=== PATIENT | male | born 1965 | race Hispanic/Latino ===

== ENCOUNTER 2018-04-20 13:44 | Inpatient (IN) | payer MEDICARE, OTHER ==
[2018-04-20] MEDS ORDERED: Acetaminophen 500 MG TAB ONE (14:26)
[2018-04-20 14:43] LABS: Bilirubin Negative (Negative); Blood, Urine Large (Negative); Clarity CLOUDY (Clear); Glucose, Urine (Dipstick) Negative (Negative); Leukocyte Large (Negative); Nitrite Negative (Negative); Protein, Urine (Dipstick) 100 mg/dL (Neg-Trace); Specific Gravity, Urine 1.013 (1.002-1.036)
[2018-04-20 14:50] LABS: Bacteria/HPF 1+ HPF (None Seen); Hyaline Casts/LPF 0-3 HYALINE CAST LPF (0-3 Hyaline); Pathc Cast-AUWi Flag 0.57 (0-2.49); Squamous Epithelial None Seen HPF (0-3)
[2018-04-20 14:54] LABS: Yeast-AUWi Flag 401.7 (0-25.0)
[2018-04-20 14:57] LABS: Mean Corpuscular HGB CONC 33.8 g/dL (32.0-36.0); Mean Corpuscular Hemoglobin 30.9 pg (27.0-31.0); Mean Corpuscular Volume 91.5 fL (78.0-98.0); Mean Platelet Volume 8.1 fL (7.4-10.4); Platelet Count 214 thou/uL (130-400); Red Blood Cell (RBC) Count 5.19 mill/uL (4.70-6.10); White Blood Cell (WBC) Count 16.3 thou/uL (4.8-10.8)
[2018-04-20 15:06] LABS: RBC/HPF GREATER THAN 50-TNTC HPF (0-3); Yeast-All Forms None Seen HPF (None Seen)
[2018-04-20 15:14] LABS: ALT (SGPT) 12 U/L (8-55); AST (SGOT) 15 U/L (5-34); Albumin 4.8 g/dL (3.5-5.0); Alkaline Phosphatase 80 U/L (40-150); Anion Gap 14 mmol/L (10-20); BUN (Urea Nitrogen) 16 mg/dL (8.4-25.7); Bilirubin, Total 1.2 mg/dL (0.2-1.2); Calc. Creatinine Clearance 0 mL/min (70-130); Calcium 9.9 mg/dL (7.8-10.44); Carbon Dioxide 23 mmol/L (22-29); Chloride 104 mmol/L (98-107); Estimated GFR-MDRD 80; Globulin 3.1 g/dL (2.4-3.5); Glucose 135 mg/dL (70-105); Potassium 3.8 mmol/L (3.5-5.1); Protein, Total 7.9 g/dL (6.0-8.3); Sodium 137 mmol/L (136-145)
[2018-04-20 15:15] LABS: Band 6 % (5-11); Lymphocytes 4 % (21-51); MDiff Complete? YES; Monocytes 4 % (0-10); Neutrophil 84 % (42-75); PLT Morphology Comment Appears Adequate; RBC Morphology Normal; Reactive Lymphocytes 1 % (0-10)
[2018-04-20] MEDS ORDERED: Sodium Chloride 0.9% 100 ML ONE (15:37)
[2018-04-20] MEDS ORDERED: cefTRIAXone\\ROCEPHIN 1 GM VIAL ONE (15:37)
[2018-04-20] MEDS ORDERED: Bisacodyl 5 MG TAB PO PRN (17:49)
[2018-04-20] MEDS ORDERED: Acetaminophen 650 MG Suppository PR PRN (17:49)
[2018-04-20] MEDS ORDERED: Ondansetron ODT 4 MG TAB SL PRN (19:06)
[2018-04-20] MEDS ORDERED: Ondansetron HCl/PF 4 MG/2 ML Vial IVP PRN (19:06)
--- NOTE | 2018-04-20 19:08 | HP ---
PRIMARY CARE PROVIDER: Doug Ugalde. CHIEF COMPLAINT: Hematuria. HISTORY OF PRESENT ILLNESS: Mr. Schwartz is a pleasant 53-year-old gentleman, who was seen at [facility] on 04/20/2018. He speaks Qatari, also speaks some Slovenian. The family member by the bedside, assisted with transla tion. He has no medical problems. He is followed by [facility]. He is also followed by [facility] for s chizophrenia. He takes all his medications regularly and has not had any other medical problems. night, he developed hematuria. He describes bright red blood in the urine. He reportedly complai brennen of abdominal pain earlier, but when questioned about it, he denied having any abdominal pain. He is unsure if he had any fevers or chills. He denies any nausea or vomiting. He denies any diarrhea . He came to the emergency room mainly because of ongoing hematuria. In the emergency room, he was found to be febrile and tachycardic and also found to have a urinary tr act infection. He was therefore referred for admission. REVIEW OF SYSTEMS: All other systems reviewed and found to be negative. PAST MEDICAL HISTORY: None. PAST SURGICAL HISTORY: None. PSYCHIATRIC HISTORY: Schizophrenia. SOCIAL HISTORY: The patient denies tobacco use, alcohol use or recreational drug use. FAMILY HISTORY: Significant for myocardial infarction in his father. ALLERGIES: No known drug allergies. CURRENT MEDICATIONS: Benztropine 2 mg 2 times a day, Claritin 10 mg daily, aspirin 81 mg daily, traz odone 200 mg at bedtime, clonazepam 0.5 mg at bedtime. PHYSICAL EXAMINATION: GENERAL: Mr. Schwartz is awake and alert, not in acute distress. VITAL SIGNS: Blood pressure is 118/76, pulse 117, oxygen saturation 97% on room air. He is currentl y afebrile. T-max in the emergency room was 100.3 degrees Fahrenheit. EYES: No scleral icterus. No conjunctival pallor. ENT: Dry mucosal membranes, no oropharyngeal erythema or exudates. NECK: Supple, nontender, trachea is midline. RESPIRATORY: Accessory muscles of breathing are not active. Chest wall movements are symmetric bila terally. LUNGS: Clear to auscultation without wheeze, rhonchi or crepitations. CARDIOVASCULAR: S1 and S2 are heard, tachycardic and regular. Peripheral pulses palpable. No carot id bruit, no pericardial rub. ABDOMEN: Soft, nontender, bowel sounds heard, no hepatomegaly, no splenomegaly, no costovertebral an gle tenderness. NEUROLOGIC: Cranial nerves II-XII intact. Deep tendon reflexes are 2+. SKIN: No rashes or subcutaneous nodules. LYMPHATIC: No cervical lymphadenopathy. PSYCHIATRIC: Normal mood, normal affect, patient is oriented to person and place, not to time. LABORATORY DATA: Mr. Schwartz's labs and investigations were reviewed. He has leukocytosis with 16,30 0 white cells, of which 84% are neutrophils, normal hemoglobin, normal platelet count, unremarkable c omprehensive metabolic profile, normal lactic acid and urinalysis that is positive for protein, keton es, blood, leukocyte esterase and greater than 50 WBCs. ASSESSMENT AND PLAN: Mr. Schwartz is a pleasant 53-year-old gentleman who was seen at [facility] on 04/20/2018. His problem list includes: 1. Sepsis: Mr. Schwartz is presenting with sepsis, most likely secondary to urinary tract infection. He will be admitted to the hospital for further management including intravenous fluids and intraven ous antibiotics. We will treat him with intravenous ceftriaxone and follow urine cultures. 2. Urinary tract infection. We will treat him with intravenous ceftriaxone, follow urine cultures a nd adjust antibiotics as needed. 3. Dehydration: The patient is clinically dehydrated. Provide intravenous hydration and reexamined . 4. Schizophrenia: Continue home medications. Many thanks for allowing me to participate in your patient's care. Please feel free to contact me wi th any questions or concerns. LEVEL OF RISK: High. LEVEL OF COMPLEXITY: High.
[2018-04-20 19:41] VITALS: BMI 22.4
[2018-04-20] MEDS: Sodium Chloride 0.9% 1,000 ML IV SCH (20:01)
[2018-04-20] MEDS: Acetaminophen 325 MG TAB PO PRN (21:23)
[2018-04-21] MEDS: Sodium Chloride 0.9% 1,000 ML IV SCH (04:18)
[2018-04-21 04:43] LABS: #Eosinphils 0.1 thou/uL (0.0-0.7); #Lymphocytes 1.5 thou/uL (1.20-3.40); #Monocytes 0.9 thou/uL (0.11-0.59); #Neutrophils 10.9 thou/uL (1.40-6.50); %Basophils 0.2 % (0.0-1.0); %Eosinophils 0.5 % (0.0-10.0); %Neutrophils 81.3 % (42.0-75.0); Hemoglobin 13.9 g/dL (14.0-18.0); Mean Corpuscular HGB CONC 34.1 g/dL (32.0-36.0); Mean Corpuscular Hemoglobin 31.4 pg (27.0-31.0); Mean Platelet Volume 7.6 fL (7.4-10.4); Platelet Count 176 thou/uL (130-400); RBC Distribution Width 12.1 % (11.5-14.5); Red Blood Cell (RBC) Count 4.42 mill/uL (4.70-6.10); White Blood Cell (WBC) Count 13.4 thou/uL (4.8-10.8)
[2018-04-21 05:04] LABS: Anion Gap 9 mmol/L (10-20); BUN (Urea Nitrogen) 11 mg/dL (8.4-25.7); Calc. Creatinine Clearance 115 mL/min (70-130); Calcium 8.6 mg/dL (7.8-10.44); Carbon Dioxide 25 mmol/L (22-29); Chloride 107 mmol/L (98-107); Estimated GFR-MDRD Greater than 90; Glucose 117 mg/dL (70-105); Potassium 3.7 mmol/L (3.5-5.1); Sodium 137 mmol/L (136-145)
[2018-04-21] MEDS: Enoxaparin Sodium 40 MG/0.4 ML SYRINGE SC SCH (07:57)
[2018-04-21] MEDS: Acetaminophen 325 MG TAB PO PRN ×2 (08:04→17:15)
[2018-04-21] MEDS ORDERED: Loratadine 10 MG TAB PO PRN (09:00)
[2018-04-21] MEDS ORDERED: Aspirin 81 mg Enteric Coated Tablet PO SCH (10:00)
[2018-04-21] MEDS ORDERED: Benztropine 1 MG TAB PO SCH (10:00)
[2018-04-21] MEDS ORDERED: Loratadine 10 MG TAB PO SCH (10:00)
--- NOTE | 2018-04-21 13:33 | PDOC.PN ---
- Subjective Encounter Start Date: 04/21/18 Encounter Start Time: 08:00 Pt seen for followup re: sepsis. Denies chest pain, shortness of breath, fevers or chills. - Objective MAR Reviewed: Yes Vital Signs & Weight: Vital Signs (12 hours) Temp Pulse Resp BP BP Pulse Ox 04/21/18 08:00 98.8 F 100 18 108/71 97 04/21/18 04:00 97.9 F 92 18 107/70 95 Weight Weight 164 lb 14.492 oz I&O: 04/20/18 04/21/18 04/22/18 06:59 06:59 06:59 Intake Total 1420 Output Total 950 Balance 470 Result Diagrams: 04/21/18 04:27 04/21/18 04:27 Additional Labs: labs reviewed by me Phys Exam - Physical Examination Constitutional: NAD HEENT: moist MMs, sclera anicteric, oral pharynx no lesions, 2+ tonsils Neck: no nodes, no JVD, supple, full ROM Respiratory: no wheezing, no rales, no rhonchi, clear to auscultation bilateral Cardiovascular: RRR, no rub S1, S2 Gastrointestinal: soft, non-tender, no distention, positive bowel sounds Neurological: moves all 4 limbs Psychiatric: normal affect Deviation from normal: Oriented to person and place, not to time Dx/Plan (1) Sepsis Code(s): A41.9 - SEPSIS, UNSPECIFIED ORGANISM Status: Acute Comment: Improved (2) E. coli UTI Code(s): N39.0 - URINARY TRACT INFECTION, SITE NOT SPECIFIED; B96.20 - UNSP ESCHERICHIA COLI THE CAUSE OF DISEASES CLASSD ELSWHR Status: Acute Comment: continue IV ceftriaxone, await cultures (3) Leucocytosis Code(s): D72.829 - ELEVATED WHITE BLOOD CELL COUNT, UNSPECIFIED Status: Acute Comment: Improving (4) Schizophrenia Code(s): F20.9 - SCHIZOPHRENIA, UNSPECIFIED Status: Chronic Comment: stable (5) Dehydration Code(s): E86.0 - DEHYDRATION Status: Resolved - Plan plan discussed w/ family, continue antibiotics, out of bed/ambulate, DVT proph w /lovenox * . Review of Systems - Review of Systems Constitutional: negative: fever, chills, sweats, weakness, malaise Respiratory: negative: Cough, Shortness of Breath, SOB with Excertion, Pleuritic Pain, Wheezing Cardiovascular: negative: chest pain, palpitations, orthopnea, paroxysmal nocturnal dyspnea, edema, light headedness Gastrointestinal: negative: Nausea, Vomiting, Abdominal Pain, Diarrhea, Constipation, Melena, Hematochezia Genitourinary: negative: Dysuria, Frequency, Incontinence, Hematuria, Retention Skin: negative: Rash, Lesions, Anderson, Bruising - Medications/Allergies Allergies/Adverse Reactions: Allergies Allergy/AdvReac Type Severity Reaction Status Date / Time No Known Drug Allergies Allergy Verified 04/20/18 17:49 Medications: Current Medications Acetaminophen (Tylenol) 650 mg PO Q4H PRN PRN Reason: Headache/Fever or Pain Last Admin: 04/21/18 08:04 Dose: 650 mg Acetaminophen (Tylenol) 650 mg FL Q4H PRN PRN Reason: Headache/Fever or Pain Aspirin (Ecotrin) 81 mg PO DAILY [facility] Last Admin: 04/21/18 10:15 Dose: 81 mg Benztropine Mesylate (Cogentin) 2 mg PO BID [facility] Bisacodyl (Dulcolax) 10 mg PO DAILYPRN PRN PRN Reason: Constipation Clonazepam (Klonopin) 0.5 mg PO HS [facility] Enoxaparin Sodium (Lovenox) 40 mg SC 0900 [facility] Last Admin: 04/21/18 07:57 Dose: 40 mg Sodium Chloride (Normal Saline 0.9%) 1,000 mls @ 100 mls/hr IV .Q10H [facility] Last Admin: 04/21/18 04:18 Dose: 1,000 mls Ceftriaxone Sodium 1 gm/ (Sodium Chloride) 100 mls @ 200 mls/hr IVPB 1500 [facility] Loratadine (Claritin) 10 mg PO DAILYPRN PRN PRN Reason: ALLERGIES Sodium Chloride (Flush - Normal Saline) 10 ml IVF Q12HR [facility] Last Admin: 04/21/18 07:57 Dose: Not Given Sodium Chloride (Flush - Normal Saline) 10 ml IVF PRN PRN PRN Reason: Saline Flush Trazodone HCl (Desyrel) 200 mg PO HS [facility]
[2018-04-21] MEDS ORDERED: cefTRIAXone\\ROCEPHIN 1 GM in Sodium Chloride 0.9% 100 ML IVPB SCH (15:00)
[2018-04-21] MEDS: Benztropine 1 MG TAB PO SCH (20:12)
[2018-04-21] MEDS ORDERED: clonazePAM 0.5 MG TAB PO SCH (21:00)
[2018-04-21] MEDS ORDERED: traZODone HCl 50 MG TAB PO SCH (21:00)
[2018-04-22 04:50] LABS: #Basophils 0.1 thou/uL (0.0-0.2); #Eosinphils 0.1 thou/uL (0.0-0.7); #Neutrophils 9.2 thou/uL (1.40-6.50); %Basophils 0.4 % (0.0-1.0); %Eosinophils 1.1 % (0.0-10.0); %Lymphocytes 16.2 % (21.0-51.0); %Monocytes 7.8 % (0.0-10.0); %Neutrophils 74.5 % (42.0-75.0); Hemoglobin 14.1 g/dL (14.0-18.0); Mean Corpuscular Hemoglobin 31.5 pg (27.0-31.0); Mean Corpuscular Volume 92.5 fL (78.0-98.0); Mean Platelet Volume 8.1 fL (7.4-10.4); Platelet Count 179 thou/uL (130-400); RBC Distribution Width 12.2 % (11.5-14.5); Red Blood Cell (RBC) Count 4.49 mill/uL (4.70-6.10); White Blood Cell (WBC) Count 12.3 thou/uL (4.8-10.8)
[2018-04-22 05:04] LABS: Anion Gap 11 mmol/L (10-20); BUN (Urea Nitrogen) 7 mg/dL (8.4-25.7); Calc. Creatinine Clearance 110 mL/min (70-130); Calcium 9.3 mg/dL (7.8-10.44); Carbon Dioxide 23 mmol/L (22-29); Chloride 108 mmol/L (98-107); Estimated GFR-MDRD Greater than 90; Glucose 122 mg/dL (70-105); Potassium 3.7 mmol/L (3.5-5.1); Sodium 138 mmol/L (136-145)
[2018-04-22] MEDS: Benztropine 1 MG TAB PO SCH (07:47)
[2018-04-22] MEDS: Enoxaparin Sodium 40 MG/0.4 ML SYRINGE SC SCH (07:48)
[2018-04-22] MEDS ORDERED: Ciprofloxacin 500 MG TAB PO SCH (09:00)
[2018-04-22] MEDS ORDERED: Aspirin 81 mg Enteric Coated Tablet PO SCH (09:00)
[2018-04-22 14:03] VITALS: BP 116/79; TEMP 98.6
--- NOTE | 2018-04-22 18:05 | DIS ---
PRIMARY CARE PROVIDER: [facility]. DATE OF ADMISSION: 04/20/2018 DATE OF DISCHARGE: 04/22/2018. DISCHARGE DIAGNOSES: 1. Sepsis. 2. Escherichia coli urinary tract infection. 3. Dehydration. CONDITION OF PATIENT ON THE DAY OF DISCHARGE: Stable. I assessed Mr. Schwartz on the day of discharge . He denies any chest pain or shortness of breath. Vital signs are stable. S1 and S2 are heard, re gular. Lungs are clear to auscultation bilaterally. DISCHARGE MEDICATIONS: In addition to his preadmission home medications as dictated on my history an d physical note dated 04/20/2018, he is being discharged on Macrobid 100 mg 2 times a day for 5 more days. HOSPITAL COURSE: Mr. Schwartz is a pleasant 53-year-old gentleman, who was admitted to [facility] on 04/20/2018 for sepsis, urinary tract infection and dehydration. Please refer t o my history and physical note dated 04/20/2018 for further details. Final urine cultures grew Esche richia coli that is resistant to ampicillin, ampicillin/sulbactam, trimethoprim/sulfamethoxazole; sen sitive to amikacin, cefepime, cefoxitin, ceftazidime, ceftriaxone, ciprofloxacin, gentamicin, levoflo xacin, meropenem, nitrofurantoin, piperacillin/tazobactam and tobramycin. Mr. Schwartz continued to improve clinically. He received intravenous fluids during this admission. H e is being stepped down to oral antibiotics on the day of discharge. He has been advised to follow u p with his primary care provider for final blood culture results, preliminary blood culture results a re negative at the time of this dictation. On the day of discharge, he has white count 12,300, hemoglobin 14.1, platelet count 179,000, sodium 1 38, potassium 3.7, and creatinine 0.8. Many thanks for allowing me to participate in your patient's care. Please feel free to contact me wi th any questions or concerns. DISCHARGE DESTINATION: Home. TOTAL AMOUNT OF TIME SPENT COORDINATING THIS DISCHARGE: 33 minutes.
== END 2018-04-22 14:19 | disposition home or self-care (01) | DRG 872 ==
LOC: ERS 13:44 → T4-A 18:51
PROVIDERS: ADMIT Internal Medicine; ATTEND Internal Medicine
DX: A41.51 Sepsis due to Escherichia coli [E. coli] (principal); N39.0 Urinary tract infection, site not specified; F20.9 Schizophrenia, unspecified; E86.0 Dehydration
CPT/HCPCS: 36415; 80048; 80053; 81003; 81015; 83605; 85025; 87040; 87077; 87086; 87186; 96361; 96365; 96367; A4216; J0696; J1580; J1650; J3370; J7050

== ENCOUNTER 2022-02-18 21:34 | Emergency (ER) | payer MEDICAID, MEDICARE | END 2022-02-19 01:34 | disposition left against medical advice (07) | LOC: ERS 21:34 | DX: Z53.21 Procedure and treatment not carried out due to patient leaving prior to being seen by health care provider (principal) ==

== ENCOUNTER 2023-09-22 03:01 | Emergency (ER) | payer MEDICAID ==
[2023-09-22] MEDS ORDERED: Ibuprofen 800 MG TAB ONE (05:27)
== END 2023-09-22 05:26 | disposition home or self-care (01) ==
LOC: ERS 03:01
DX: M25.512 Pain in left shoulder (principal); Z55.6 Problems related to health literacy
CPT/HCPCS: 99283